=== PATIENT | female | born 1945 | race Caucasian/White ===

== ENCOUNTER 2018-11-18 13:23 | Emergency (ER) | payer MEDICARE ==
--- OUTSIDE RECORDS SUMMARY | 2018-11-18 13:31 | XMS REPORT | Continuity of Care Document ---
:1945 External Reference #:[id number] Author Name Nas Evans N.P. 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 Active Problems Provider Date Type 2 diabetes mellitus Syl Robertsonlie [facility] Onset: 12/13/2011 Mixed hyperlipidemia Robertson,Marissa [facility] Onset: 12/13/2011 Essential hypertension Robertson,Marissa [facility] Onset: 12/13/2011 Hypothyroidism Marissa Robertson [facility] Onset: 12/13/2011 Social History Type Date Description Comments Sex Unknown Tobacco Use Start: Unknown End: Former Cigarette Smoker pt smoked from age 16 Unknown untill she was in her early 30's ETOH Use Denies alcohol use Tobacco Use Start: Unknown End: Patient is a former smoker Unknown Allergies, Adverse Reactions, Alerts Active Allergies Reaction Severity Comments Date Ceclor 08/04/2011 Codeine 08/04/2011 Cleocin 08/04/2011 Morphine 08/04/2011 Medications Active Medications SIG Qnty Indications Ordering Date Provider Acetaminophen 2 tab by mouth 180tabs Johnnie Purvis, 10/11/2017 500mg three times a M.D. Tablets day Glipizide tab one by mouth 90tabs E11.9 Johnnie Purvis, 11/30/2015 10mg Tablets every in the M.D. morning Levoxyl one by mouth 90tabs E03.9 Johnnie Purvis, 11/30/2015 100mcg Tablets every d M.D. Lisinopril-Hydrochloro take one tablet 90tabs E11.9 Johnnie Purvis, 11/29 thiazide by mouth a day M.D. 20-25mg Tablets I10 Immunizations CPT Code Status Date Vaccine Lot # [id number] Refused 11/30/2015 Flu Vaccine Vital Signs Date Vital Result Comment 10/26/2018 10:32am BP Systolic 136 mmHg BP Diastolic 74 mmHg Height 63 inches 5'3" Weight 220.00 lb BMI (Body Mass Index) 39.0 kg/m2 Heart Rate 69 /min Respiratory Rate 16 /min 10/25/2017 10:44am BP Systolic 126 mmHg BP Diastolic 70 mmHg Height 63 inches 5'3" Weight 227.00 lb BMI (Body Mass Index) 40.2 kg/m2 Heart Rate 64 /min Respiratory Rate 16 /min Results Test Date Facility Test Result H/L Range Note CBC Auto Diff 10/22/2018 [facility] White Blood 7.1 10^3/uL Normal 3.5-10.8 Count Red Blood Count 4.87 10^6/uL Normal 3.70-4.87 Hemoglobin 14.8 g/dL Normal 12.0-16.0 Hematocrit 45 % Normal 35-47 Mean Corpuscular Volume 92 fL Normal 80-97 Mean Corpuscular Hemoglobin 31 pg Normal 27-31 Mean Corpuscular HGB Conc 33 g/dL Normal 31-36 Red Cell Distribution Width 13 % Normal 10-15 Platelet Count 209 10^3/uL Normal 150-450 Mean Platelet Volume 9.4 fL Normal 7.4-10.4 Abs Neutrophils 4.5 10^3/uL Normal 1.5-7.7 Abs Lymphocytes 1.8 10^3/uL Normal 1.0-4.8 Abs Monocytes 0.6 10^3/uL Normal 0-0.8 Abs Eosinophils 0.2 10^3/uL Normal 0-0.6 Abs Basophils 0.0 10^3/uL Normal 0-0.2 Abs Nucleated RBC 0.0 10^3/uL Granulocyte % 63.5 % Lymphocyte % 24.8 % Monocyte % 8.5 % Eosinophil % 2.6 % Basophil % 0.6 % Nucleated Red Blood Cells % 0.1 Comp Metabolic Panel 10/22/2018 [facility] Sodium 141 mmol/L Normal 135-145 Potassium 4.1 mmol/L Normal 3.5-5.0 Chloride 101 mmol/L Normal 101-111 Co2 Carbon Dioxide 33 mmol/L High 22-32 Anion Gap 7 mmol/L Normal 2-11 Glucose 173 mg/dL High 70-100 Blood Urea Nitrogen 14 mg/dL Normal 6-24 Creatinine 0.93 mg/dL Normal 0.51-0.95 BUN/Creatinine Ratio 15.1 Normal 8-20 Calcium 9.6 mg/dL Normal 8.6-10.3 Total Protein 6.3 g/dL Low 6.4-8.9 Albumin 3.9 g/dL Normal 3.2-5.2 Globulin 2.4 g/dL Normal 2-4 Albumin/Globulin Ratio 1.6 Normal 1-3 Total Bilirubin 0.50 mg/dL Normal 0.2-1.0 Alkaline Phosphatase 40 U/L Normal 34-104 Alt 20 U/L Normal 7-52 Ast 17 U/L Normal 13-39 Egfr Non- 58.8 >60 Egfr 71.1 >60 1 Laboratory test 10/22/2018 [facility] Hemoglobin A1c 8.0 % High 4.0- 5.6 2 finding (Glyco HGB) Lipid Profile 10/22/2018 [facility] Triglycerides 219 mg/dL 3 (Trig/Chol/HDL) Cholesterol 220 mg/dL 4 HDL Cholesterol 47.6 mg/dL 5 LDL Cholesterol 129 mg/dL 6 Laboratory test 10/22/2018 [facility] TSH (Thyroid 6.24 mcIU/mL High 0.34-5.60 finding Stim Horm) Free T4 (Free Thyroxine) 0.90 ng/dL Normal 0.61-1.12 Erythrocyte Sed Rate 12 mm/Hr Normal 0-29 Rheumatoid Factor < 10 IU/mL Normal <15 1 Because ethnic data is not always readily available, this report includes an eGFR for both -Americans and non- Americans. The National Kidney Disease Education Program (NKDEP) does not endorse the use of the MDRD equation for patients that are not between the ages of 18 and 70, are , have extremes of body size, muscle mass, or nutritional status, or are non- or non-. According to the National Kidney Foundation, irrespective of diagnosis, the stage of the disease is based on the level of kidney function: Stage Description GFR(mL/min/1.73 m(2)) 1 Kidney damage with normal or decreased GFR 90 2 Kidney damage with mild decrease in GFR 60-89 3 Moderate decrease in GFR 30-59 4 Severe decrease in GFR 15-29 5 Kidney failure <15 (or dialysis) 2 Therapeutic target for the treatment of diabetes mellitus patients is <7% HBA1C, and in selective patients <6.0%. Please refer to [place] [employer] Association diabetic care guidelines for further information. 3 Desirable: <150 Borderline High: 150-199 High: 200-499 Very High: >500 4 Desirable: <200 Borderline High: 200-239 High: >239 5 Low: <40 Desirable: 40-60 High: >60 6 Desirable: <100 Near Optimal: 100-129 Borderline High: 130-159 High: 160-189 Very High: >189 Procedures Description No Information Available Medical Devices Description No Information Available Encounters Type Date Location Provider Dx Diagnosis Office Visit 10/26/2018 [place] [facility] Nas Evans, E11.9 Type 2 diabetes 10:30a N.P. mellitus without complications I10 Essential (primary) hypertension E78.2 Mixed hyperlipidemia L20.9 Atopic dermatitis, unspecified M15.9 Polyosteoarthritis, unspecified E03.9 Hypothyroidism, unspecified J30.9 Allergic rhinitis, unspecified M25.569 Pain in unspecified knee K42.9 Umbilical hernia without obstruction or gangrene Z00.01 Encounter for general adult medical exam w abnormal findings Assessments Date Code Description Provider 10/26/2018 E11.9 Type 2 diabetes mellitus without complications Nas Evans N.PDarcy 10/26/2018 I10 Essential (primary) hypertension Nas Evans N.P. 10/26/2018 E78.2 Mixed hyperlipidemia Nas Evans N.P. 10/26/2018 L20.9 Atopic dermatitis, unspecified Nas Evans N.P. 10/26/2018 M15.9 Polyosteoarthritis, unspecified Nas Evans, N.P. 10/26/2018 E03.9 Hypothyroidism, unspecified Nas Evans, N.P. 10/26/2018 J30.9 Allergic rhinitis, unspecified Nas vEans N.P. 10/26/2018 M25.569 Pain in unspecified knee Nas Evans N.P. 10/26/2018 K42.9 Umbilical hernia without obstruction or Nas Evans, N.P. gangrene 10/26/2018 Z00.01 Encounter for general adult medical Nas Evans N.P. examination with abnormal findings Plan of Treatment Future Appointment(s):11/09/2018 10:15 am - [facility]/26/2018 - Nas Evans N.P.E11.9 Type 2 diabetes mellitus without complicationsComments:DIET REVIEWED CONTINUE DIETWT LOSSF/U LAB FS qAC AND HS PRN F/U FBWFollow up:1 week.I10 Essential (primary) vnwhdpemrvgeG95.2 Mixed hyperlipidemiaComments:DIET REVIEWED CONTINUE DIETWT LOSSF/U LAB FBWL20.9 Atopic dermatitis, unspecifiedComments:SKIN CARE INSTRUCTIONS LOTION OR BABY OIL 2-3 APPLICATION PER DAYUSE MOISTURIZING SOAPAVOID PROLONGED WATER EXPOSUREAVOID USING HOT WATER IN SHOWER SKIN CARE INSTRUCTIONS LOTION OR BABY OIL 2-3 APPLICATION PER DAYUSE MOISTURIZING SOAPAVOID PROLONGED WATER EXPOSUREAVOID USING HOT WATER IN PMIYGTB90.9 Polyosteoarthritis, unspecifiedComments:EXERCISE/HEAT/MESSAGETYLENOL OR MOTRIN PRNAVOID HEAVY LIFTINGWT LOSSE03.9 Hypothyroidism, unspecifiedComments:RX REVIEWED AND UPDATEDF /U TSH/ FT4J30.9 Allergic rhinitis, unspecifiedComments:INCREASE PO FLUID USE ANTIHISTAMINE PRN SECOND HAND SMOKING QCDUDHTOLB09.569 Pain in unspecified kneeComments:EXERCISE/HEAT /MESSAGEAVOID HEAVY LIFTING WT LOSSTYLENOL OR MOTRIN PRN EXERCISE/HEAT /MESSAGEAVOID HEAVY LIFTING WT LOSSTYLENOL OR MOTRIN PRNK42.9 Umbilical hernia without obstruction or gangreneComments:STABLE ABDOMINAL BINDER PRN WT LOSSZ00.01 Encounter for general adult medical examination with abnormal findings Functional Status Description No Information Available Mental Status Description No Information Available Referrals Description No Information Available
--- OUTSIDE RECORDS SUMMARY | 2018-11-18 13:31 | XMS REPORT | Continuity of Care Document ---
:1945 External Reference #:[id number] Author Name Johnnie Purvis M.D. 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 Acetaminophen 2 tab by mouth 180tabs Johnnie Purvis, 10/11/2017 500mg three times a M.D. Tablets day Levoxyl one by mouth 90tabs E03.9 Johnnie Purvis, 11/30/2015 100mcg Tablets every d M.D. Lisinopril-Hydrochloro take one tablet 90tabs E11.9 Johnnie Purvis, 11/29 thiazide by mouth a day M.D. 20-25mg Tablets I10 Immunizations CPT Code Status Date Vaccine Lot # [id number] Refused 11/30/2015 Flu Vaccine Vital Signs Date Vital Result Comment 11/09/2018 9:45am BP Systolic 138 mmHg BP Diastolic 72 mmHg Height 63 inches 5'3" Weight 216.00 lb BMI (Body Mass Index) 38.3 kg/m2 Heart Rate 63 /min Respiratory Rate 16 /min 10/26/2018 10:32am BP Systolic 136 mmHg BP Diastolic 74 mmHg Height 63 inches 5'3" Weight 220.00 lb BMI (Body Mass Index) 39.0 kg/m2 Heart Rate 69 /min Respiratory Rate 16 /min Results Test Date Facility Test Result H/L Range Note CBC Auto Diff 10/22/2018 [facility] White Blood 7.1 10^3/uL Normal 3.5-10.8 Count [...] Cells % 0.1 Comp Metabolic Panel 10/22/2018 [facility] Sodium 141 mmol/L Normal 135-145 Potassium 4.1 [...] Egfr 71.1 >60 1 Laboratory test 10/22/2018 [facility] Hemoglobin A1c 8.0 % High 4.0- 5.6 2 finding (Glyco HGB) Lipid Profile 10/22/2018 [facility] Triglycerides 219 mg/dL 3 (Trig/Chol/HDL) Cholesterol 220 mg/dL 4 HDL Cholesterol 47.6 mg/dL 5 LDL Cholesterol 129 mg/dL 6 Laboratory test 10/22/2018 [facility] TSH (Thyroid 6.24 mcIU/mL High 0.34-5.60 finding [...] in selective patients <6.0%. Please refer to [place] [employer] diabetic care guidelines for further [...] Date Location Provider Dx Diagnosis Office Visit 11/09/2018 [place] [facility] Johnnie Purvis, E11.9 Type 2 diabetes 10:15a M.D. mellitus without complications E78.2 Mixed hyperlipidemia I10 Essential (primary) hypertension E03.9 Hypothyroidism, unspecified M15.9 Polyosteoarthritis, unspecified E66.01 Morbid (severe) obesity due to excess calories L20.9 Atopic dermatitis, unspecified J30.9 Allergic rhinitis, unspecified E55.9 Vitamin D deficiency, unspecified M79.606 Pain in leg, unspecified M25.569 Pain in unspecified knee K42.9 Umbilical hernia without obstruction or gangrene Office Visit 10/26/2018 10:30a [place] [facility] Nas Evans, E11.9 Type 2 diabetes N.P. mellitus without complications I10 Essential (primary) hypertension E78.2 Mixed hyperlipidemia L20.9 Atopic dermatitis, unspecified M15.9 Polyosteoarthritis, unspecified E03.9 Hypothyroidism, unspecified J30.9 Allergic rhinitis, unspecified M25.569 Pain in unspecified knee K42.9 Umbilical hernia without obstruction or gangrene Z00.01 Encounter for general adult medical exam w abnormal findings Z68.39 Body mass index (BMI) 39.0-39.9, adult Assessments Date Code Description Provider 11/09/2018 E11.9 Type 2 diabetes mellitus without Johnnie Purvis M.D. complications 11/09/2018 E78.2 Mixed hyperlipidemia Johnnie Purvis M.D. 11/09/2018 I10 Essential (primary) hypertension Johnnie Purvis M.D. 11/09/2018 E03.9 Hypothyroidism, unspecified Johnnie Purvis M.D. 11/09/2018 M15.9 Polyosteoarthritis, unspecified Johnnie Purvis M.D. 11/09/2018 E66.01 Morbid (severe) obesity due to excess YanivJohnnie mcarthur M.D. calories 11/09/2018 L20.9 Atopic dermatitis, unspecified Johnnie Purvis M.D. 11/09/2018 J30.9 Allergic rhinitis, unspecified Johnnie Purvis M.D. 11/09/2018 E55.9 Vitamin D deficiency, unspecified Johnnie Purvis M.D. 11/09/2018 M79.606 Pain in leg, unspecified Johnnie Purvis M.D. 11/09/2018 M25.569 Pain in unspecified knee Johnnie Purvis M.D. 11/09/2018 K42.9 Umbilical hernia without obstruction or Johnnie Purvis M.D. gangrene 10/26/2018 E11.9 Type 2 diabetes mellitus without Nas Evans, N.P. complications 10/26/2018 I10 Essential (primary) hypertension Nas Evans N.PDarcy 10/26/2018 E78.2 Mixed hyperlipidemia Nas Evans N.P. 10/26/2018 L20.9 Atopic dermatitis, unspecified Nas Evans, N.P. 10/26/2018 M15.9 Polyosteoarthritis, unspecified Nas Evans, N.P. 10/26/2018 E03.9 Hypothyroidism, unspecified Nas Evans N.P. 10/26/2018 J30.9 Allergic rhinitis, unspecified Nas Evans, N.P. 10/26/2018 M25.569 Pain in unspecified knee Nas Evans, N.P. 10/26/2018 K42.9 Umbilical hernia without obstruction or Nas Evans, N.P. gangrene 10/26/2018 Z00.01 Encounter for general adult medical Nas Evans N.Zulma examination with abnormal findings 10/26/2018 Z68.39 Body mass index (BMI) 39.0-39.9, adult Nas Evans N.P. Plan of Treatment 11/09/2018 - Johnnie Purvis M.D.E11.9 Type 2 diabetes mellitus without complicationsNew Medication:Janumet 50-1000 mg - 1 by mouth twice a dayComments: DIET REVIEWED CONTINUE DIETWT LOSSF/U LAB FS qAC AND HS PRN F/U FBWE78.2 Mixed hyperlipidemiaComments:DIET REVIEWED CONTINUE DIETWT LOSSF/U LAB FBWI10 Essential (primary) hypertensionComments:CHECK BP TIW ( PRN)DIET AND FLUID COUNSELING LOW SODIUM DIETWT LOSSF/U LABE03.9 Hypothyroidism, unspecifiedComments:RX REVIEWED AND UPDATEDF/U TSH/ FT4M15.9 Polyosteoarthritis , unspecifiedComments:EXERCISE/HEAT/MESSAGETYLENOL OR MOTRIN PRNAVOID HEAVY LIFTINGWT LOSSE66.01 Morbid (severe) obesity due to excess caloriesComments:WT LOSS COUNCELLINGEXERCISEDIET QHUNRHEQVOXG44.9 Atopic dermatitis, unspecifiedComments:SKIN CARE INSTRUCTIONS LOTION OR BABY OIL 2-3 APPLICATION PER DAYUSE MOISTURIZING SOAPAVOID PROLONGED WATER EXPOSUREAVOID USING HOT WATER IN TASFQHJ98.9 Allergic rhinitis, unspecifiedComments:INCREASE PO FLUID USE ANTIHISTAMINE PRN SECOND HAND SMOKING CHTSTGEBMT26.9 Vitamin D deficiency, unspecifiedComments:INCREASE EXPOSURE TO SUNREVIEW OF DIETM79.606 Pain in leg, unspecifiedComments:TYLENOL OR MOTRIN PRN EXERCISE/HEAT/LSRKAMHC17.569 Pain in unspecified kneeComments:EXERCISE/HEAT /MESSAGEAVOID HEAVY LIFTING WT LOSSTYLENOL OR MOTRIN PRNK42.9 Umbilical hernia without obstruction or gangreneComments:SURGICAL CONSULT Functional Status Description No Information Available Mental Status Description No Information Available Referrals Refer to Reason for Referral Status Appt Date Erik Allan MD HERNIA REPAIR Sent [address] [place] [address] [phone]
[2018-11-18] MEDS ORDERED: NS 0.9% 1000 ML** 1,000 ML IV ONE (13:51)
[2018-11-18] MEDS ORDERED: Ondansetron INJ* 2 MG/ML VIAL IV ONE (13:53)
--- NOTE | 2018-11-18 13:53 | ED ---
Abdominal Pain/Female - HPI Summary HPI Summary: This patient is a 73 year old F presenting to ED with a chief complaint of umbilical hernia since 11/04/18. The pain has worsened since to be constant. Patient denies it is hard or erythematic. She is scheduled to see Dr. Allan, surgeon, on 11/23/18, but she states she is in too much pain to wait. Patient has had an US for the hernia but not a CT. The patient rates the pain 5/10 in severity. Symptoms aggravated by nothing. Symptoms alleviated by nothing. Patient denies fevers, vomiting, nausea, chills. - History of Current Complaint Chief Complaint: EDAbdPain Stated Complaint: HERNIA PER PT Time Seen by Provider: 11/18/18 13:39 Hx Obtained From: Patient ?: No - Hysterectomy Onset/Duration: Gradual Onset, Lasting Weeks - Since 11/04/18, Still Present Timing: Constant Severity Initially: Mild Severity Currently: Moderate Pain Intensity: 5 Pain Scale Used: 0-10 Numeric Location: Umbilical Aggravating Factor(s): Nothing Alleviating Factor(s): Nothing Associated Signs and Symptoms: Positive: Negative - Chills. Negative: Fever, Nausea, Vomiting Allergies/Adverse Reactions: Allergies Allergy/AdvReac Type Severity Reaction Status Date / Time cefaclor [From Ceclor] Allergy Severe Hives Verified 11/18/18 13:29 clindamycin [From Cleocin] Allergy Severe Hives Verified 11/18/18 13:29 morphine Allergy Severe Anaphylatic Verified 11/18/18 13:29 Shock codeine AdvReac Severe See Comment Verified 11/18/18 13:29 PMH/Surg Hx/FS Hx/Imm Hx Endocrine/Hematology History: Reports: Hx Diabetes, Hx Thyroid Disease Cardiovascular History: Reports: Hx Hypertension - Surgical History Surgery Procedure, Year, and Place: 3 c-sections, gall bladder removed, appendectomy, hysterectomy Infectious Disease History: No Infectious Disease History: Denies: Traveled Outside the [place] in Last 30 Days - Family History Known Family History: Positive: Cardiac Disease - [place], Other - CVA, cancer, arthritis - Social History Alcohol Use: None Hx Substance Use: No Substance Use Type: Reports: None Hx Tobacco Use: Yes Smoking Status (MU): Former Smoker Review of Systems Negative: Fever, Chills Positive: Abdominal Pain. Negative: Vomiting, Nausea All Other Systems Reviewed And Are Negative: Yes Physical Exam - Summary Physical Exam Summary: GENERAL: Patient is a well-developed and nourished F who is lying comfortable in the stretcher. Patient is not in any acute respiratory distress. HEAD AND FACE: Normocephalic EYES: PERRLA, EOMI x 2. EARS: Hearing grossly intact. MOUTH: Oropharynx within normal limits. NECK: Supple, trachea is midline, no adenopathy, no JVD, no carotid bruit. CHEST: Symmetric, no tenderness at palpation LUNGS: Clear to auscultation bilaterally. No wheezing or crackles. CVS: Regular rate and rhythm, S1 and S2 present, no murmurs or gallops appreciated. ABDOMEN: Lump around the periumbilical area that is tender to palpation, not erythematic or hard EXTREMITIES: Full ROM in all major joints, no edema, no cyanosis or clubbing. NEURO: Alert and oriented x 3. No acute neurological deficits. Speech is normal and follows commands. SKIN: Dry and warm Triage Information Reviewed: Yes Vital Signs On Initial Exam: Initial Vitals Temp Pulse Resp BP Pulse Ox 98.3 F 73 14 183/70 98 11/18/18 13:25 11/18/18 13:25 11/18/18 13:25 11/18/18 13:25 11/18/18 13:25 Vital Signs Reviewed: Yes Diagnostics - Vital Signs Vital Signs Temp Pulse Resp BP Pulse Ox 11/18/18 13:25 98.3 F 73 14 183/70 98 - Laboratory Result Diagrams: 11/18/18 14:15 11/18/18 14:15 Lab Statement: Any lab studies that have been ordered have been reviewed, and results considered in the medical decision making process. - CT A/P CT Interpretation Completed By: Radiologist Summary of CT Findings: 1. Diverticulosis without focal inflammatory change or wall thickening characteristic of acute diverticulitis. 2. At the third portion of the duodenum there is a 3.8 cm diverticulum of doubtful clinical significance. Clinically warranted further characterization could be made with endoscopy. 3. Chronic, degenerative and iatrogenic findings described in the body the report. Dr. Paiz has reviewed this radiology report. Re-Evaluation - Re-Evaluation First Eval Re-Evaluation Time: 17:30 Change: Improved Comment: Patient reports feeling better. Discussed results with patient. Patient will be discharged home with dx of diverticulosis and abdominal pain. Patient understands and agrees with this plan. Abdominal Pain Fem Course/Dx - Course Course Of Treatment: This patient is a 73 year old F presenting to ED with a chief complaint of umbilical hernia since 11/04/18. In the ED course, patient received fentanyl, Zofran, fluids, and magnesium citrate. Blood work revealed RBC 4.95, chloride 99, creatinine 0.97, glucose 155, magnesium 1.6, alkaline phosphatase 33. UA revealed specific gravity 1.002, 1+ urine blood, present squamous epithelial cells, 1+ urine bacteria. CT A/P revealed 1. Diverticulosis without focal inflammatory change or wall thickening characteristic of acute diverticulitis. 2. At the third portion of the duodenum there is a 3.8 cm diverticulum of doubtful clinical significance. Clinically warranted further characterization could be made with endoscopy. 3. Chronic, degenerative and iatrogenic findings described in the body the report. I discussed results with patient. Patient reports feeling better. Discussed results with patient. Patient will be discharged home with dx of diverticulosis and abdominal pain. Patient understands and agrees with this plan. She is hemodynamically stable and safe for discharge. Strict return precautions given and she will otherwise follow up with her PCP. - Diagnoses Provider Diagnoses: Abdominal pain, Diverticulosis Discharge ED - Sign-Out/Discharge Documenting (check all that apply): Patient Departure - Discharge Patient Received Moderate/Deep Sedation with Procedure: No - Discharge Plan Condition: Stable Disposition: HOME Patient Education Materials: Diverticulosis (ED), Abdominal Pain (ED) Referrals: Johnnie Purvis MD [Primary Care Provider] - 3 Days Additional Instructions: Follow up with your primary care physician in 1-3 days. RETURN TO THE EMERGENCY DEPARTMENT FOR CHANGING OR WORSENING SYMPTOMS. - Billing Disposition and Condition Condition: STABLE Disposition: Home - Attestation Statements Document Initiated by Scribe: Yes Documenting Scribe: Jorge Villavicencio Provider For Whom Mauricio is Documenting (Include Credential): Dm Paiz MD Scribe Attestation: Jorge Sunshine, scribed for Dm Paiz MD on 11/18/18 at 1808. Scribe Documentation Reviewed: Yes Provider Attestation: The documentation as recorded by the Jorge fuentes accurately reflects the service I personally performed and the decisions made by , Dm Paiz MD Status of Scribe Document: Viewed
[2018-11-18] MEDS ORDERED: fentaNYL* 50 MCG/ML 2 ML VIAL (100 MCG VIAL) IV SLOW PU ONE (13:54)
[2018-11-18 14:28] LABS: ABS Eosinophils 0.1 10^3/ul (0-0.6); ABS Lymphocytes 1.5 10^3/ul (1.0-4.8); ABS Monocytes 0.6 10^3/ul (0-0.8); ABS Neutrophils 3.8 10^3/ul (1.5-7.7); Eosinophil % 1.1 %; Hematocrit 45 % (35-47); Hemoglobin 15.2 g/dL (12.0-16.0); Lymphocyte % 25.3 %; Mean Corpuscular HGB Conc 34 g/dL (31-36); Mean Corpuscular Hemoglobin 31 pg (27-31); Mean Corpuscular Volume 91 fL (80-97); Mean Platelet Volume 8.7 fL (7.4-10.4); Nucleated Red Blood Cells % 0.1; Platelet Count 200 10^3/uL (150-450); Red Blood Count 4.95 10^6 /uL (3.70-4.87); Red Cell Distribution Width 13 % (10-15)
[2018-11-18 14:41] LABS: Albumin 3.8 g/dL (3.2-5.2); Albumin/Globulin Ratio 1.4 (1-3); BUN/Creatinine Ratio 16.5 (8-20); C Reactive Protein 1.98 mg/L (<8.01); Calcium 9.1 mg/dL (8.6-10.3); EGFR African American 67.7 (>60); Globulin 2.7 g/dL (2-4); Magnesium 1.6 mg/dL (1.9-2.7); Potassium 3.6 mmol/L (3.5-5.0); Total Bilirubin 0.5 mg/dL (0.2-1.0); Total Protein 6.5 g/dL (6.4-8.9)
[2018-11-18] MEDS ORDERED: Magnesium Sulfate IV* 0.5 GM/ML 2 ML VIAL (1 GM) IVPB ONE (15:36)
[2018-11-18 16:24] LABS: Urine Appearance Clear; Urine Bacteria 1+ (Absent); Urine Bilirubin Negative (Negative); Urine Blood 1+ (Negative); Urine Color Colorless; Urine Glucose Negative (Negative); Urine Ketones Negative (Negative); Urine Nitrite Negative (Negative); Urine Protein Negative (Negative); Urine Red Blood Cell Trace(0-2/hpf) (Absent); Urine Specific Gravity 1.002 (1.010-1.030); Urine Squamous Epithelial Cell Present (Absent); Urine Urobilinogen Negative (Negative); Urine White Blood Cell Trace(0-5/hpf) (Absent)
[2018-11-18] MEDS ORDERED: Iodixanol* (CONTRAST) 320 MG/ML 100 ML SDV IV ONE (16:25)
[2018-11-18 18:01] VITALS: BP 140/72
== END 2018-11-18 18:00 | disposition home or self-care (01) ==
LOC: ED 13:23
DX: R10.9 Unspecified abdominal pain (principal); K57.90 Diverticulosis of intestine, part unspecified, without perforation or abscess without bleeding; K42.9 Umbilical hernia without obstruction or gangrene; Z87.891 Personal history of nicotine dependence; I10 Essential (primary) hypertension
CPT/HCPCS: 36415; 74177; 80053; 81003; 81015; 82140; 82150; 83605; 83690; 83735; 85025; 86140; 87086; 96361; 96374; 96375; 99283; J2405; J3475; Q9967